=== PATIENT | male | born 1930 | race Caucasian/White ===

== ENCOUNTER → 2016-10-19 | Outpatient (CLI) | payer MEDICARE ==
[~2016-10-19] MED LIST: AMIO200T2 PO; ASPI-667 PO; ATOR40TA PO; BISA10SU6 RC; BUDE0.5A3 IH; CARV3.122 PO; CEPH-350 PO; CLOP75TA PO; CLOP75TA52 PO; DULO20CA PO; FAMO20TA5 PO; GABA100C7 PO; GABA400C PO; GUAI5LIQ PO; HYDR-3097 PO; HYDR-3101 PO; HYDR115S2 PO; Ipratropium/Albuterol Sulfate IH; LACT10SO PO; LEVA0.6320 IH; LEVA1.25 IH; LEVO100T5 PO; LEVO500T51 PO; LEVO50TA6 PO; LORA0.5T PO; LOSA25TA5 PO; MAGN400T27 PO; MERO500P IV; Magnesium Oxide PO; NA P133E2 RC; PANT40TA3 PO; PRED1TAB PO; PRED20TA PO; SACU1TAB PO; TEMA30CA PO; TORS20TA2 PO; VANC750P5 IV; ZOLP10TA5 PO; [UNRECOGNIZED DRUG - CODE] PO; [UNRECOGNIZED DRUG - CODE] PO
--- NOTE | 2016-10-19 18:01 | DIREP ---
PROCEDURE:CHEST 2 VIEWS COMPARISON:[facility], CT, CT CHEST W/O, 08/30/2016, 10:23 AM. [facility], CT, CT CHEST W/CONTRAST, 09/06/2016, 08:49 AM. [facility], CR, XRAY CHEST 2 VWS, 09/09/2016, 09:19 AM. [facility], CR, XRAY CHEST 2 VWS, 09/14/2016, 08:06 AM. [facility], CR, XRAY CHEST 2 VWS, 09/29/2016, 02:39 PM. INDICATIONS:L/U RIGHT LUNG PNEUMONIA FINDINGS: LUNGS/PLEURA:Interstitial infiltrate with multiple small cavities in the posterior segment of the right upper lobe and in the perihilar region of right middle lobe. VASCULATURE:Normal. Unremarkable pulmonary vasculature. CARDIAC:Normal heart size. Implanted dual-lead cardiac drooling over left upper chest. MEDIASTINUM:Normal. No visible mass or adenopathy. BONES:Normal. No fracture or visible bony lesion. OTHER:Negative. CONCLUSION:Compared to prior exam of 09/29/2016, the patient's right upper lobe interstitial infiltrate is slightly less dense. Otherwise no change in appearance of the chest. Dictated by: Rigo Diaz M.D. on 10/19/2016 at 05:55 PM
== END | disposition home or self-care (01) ==
LOC: RAD 15:16
PROVIDERS: ATTEND Specialist
DX: J18.9 Pneumonia, unspecified organism (principal)
CPT/HCPCS: 71020

== ENCOUNTER 2017-04-12 15:09 | Inpatient (IN) | payer MEDICARE ==
[~2017-04-12] VITALS: Ht 188 cm; Wt 105.7 kg
[~2017-04-12 15:09] MED LIST changes: -ASPI-667 PO; +ASPI81TA2 PO; -CEPH-350 PO; +CLOP75TA22 PO; -CLOP75TA52 PO; -DULO20CA PO; -GABA400C PO; +HYDR-3008 PO; -HYDR-3097 PO; +LEVO500T34 PO; -LEVO500T51 PO; +SULF1TAB3 PO; -[UNRECOGNIZED DRUG - CODE] PO
--- NOTE | 2017-04-12 15:20 | NUR ---
Direst Admit Patient admitted to [facility] via direct Admit from, Dr Crawford. Vitals taken at this time and charted. Patient denies pain/discomfort at this time. Will continue to monitor. Call light within reach.
[2017-04-12 15:42] VITALS: BP 158/86
[2017-04-12 15:58] LABS: BASOPHIL % 0.4 % (0.0-0.2); EOSINOPHIL # 0.1 10^3/uL (0.0-0.2); EOSINOPHIL % 1.9 % (0.0-5.0); HEMOGLOBIN 12.6 g/dL (13.9-16.3); LYMPHOCYTES # 0.5 10^3/uL (1.0-4.8); LYMPHOCYTES % 7.2 % (24.0-44.0); MEAN CELL HGB 33.5 pg (26-34); MEAN CELL HGB CONCENTRATION 32.3 g/dL (33-37); MEAN CORP VOLUME 103.7 fL (78-100); MEAN PLATELET VOLUME 8.9 fL (7.8-11.0); MONOCYTES # 0.5 10^3/uL (0.3-0.8); MONOCYTES % 7.6 % (5.0-12.0); NEUTROPHIL # 5.5 10^3/uL (1.8-7.7); NEUTROPHILS % 82.5 % (41.0-85.0); RED CELL DISTRIBUTION WIDTH 13.4 % (11.5-14.5); WHITE BLOOD CELL 6.7 10^3/uL (4.5-11.0)
[2017-04-12] MEDS ORDERED: D5W-1/2 NS/KCL 20MEQ 1,000 ML IV ONE (16:00)
--- NOTE | 2017-04-12 16:19 | DIREP ---
PROCEDURE:CHEST 2 VIEWS COMPARISON:[facility], CR, XRAY CHEST 2 VWS, 02/24/2017, 03:39 PM. INDICATIONS:PNEUMONIA FINDINGS: LUNGS/PLEURA:No significant pulmonary parenchymal abnormalities. No effusions. Regions of mild scar. No acute process is identified VASCULATURE:Normal. Unremarkable pulmonary vasculature. CARDIAC:Normal. No cardiac silhouette abnormality or cardiomegaly. Pacemaker MEDIASTINUM:Normal. No visible mass or adenopathy. BONES:Normal. No fracture or visible bony lesion. OTHER:Negative. CONCLUSION:No acute disease. No significant change has occurred. Dictated by: Alexandre Fuentes MD on 04/12/2017 at 04:17 PM
[2017-04-12 16:26] LABS: ABG PCO2 40.7 mmHg (35.0-45.0); ABG PH 7.399 (7.350-7.450); BE(B) -0.2 mmol/L (-2.0-2.0); HCO3act 24.6 mmol/L (22.0-26.0); pO2 95.1 mmHg (75.0-100.0)
[2017-04-12] MEDS: XOPENEX IH SCH ×2 (16:39→20:53)
--- NOTE | 2017-04-12 17:00 | NUR ---
IV inserted using aseptic technique to left uppper arm . Attempt times two. Patient tolerated well.
[2017-04-12 17:05] LABS: CALCIUM 8.7 mg/dL (8.4-10.5); CARBON DIOXIDE 29.7 mmol/L (20.0-32)
[2017-04-12] MEDS: ZOSYN 3.375 GRAM VIAL 3.375 GM in NS 100ML 100 ML IV SCH ×2 (18:07→23:38)
--- NOTE | 2017-04-12 18:40 | NUR ---
Patient sitting up in bed with eyes open and tv on. Denies pain/discomfort at this time. Will continue to monitor. Call light within reach.
--- NOTE | 2017-04-12 18:48 | NUR ---
Report Report given to Jackson Burch LVN
[2017-04-12 19:42] VITALS: BP 155/83
[2017-04-12] MEDS ORDERED: ZITHROMAX IV ONE (21:13)
[2017-04-12] MEDS ORDERED: NS 250ML 250 ML IV ONE (21:13)
[2017-04-12] MEDS: ZITHROMAX 500 MG in NS 250ML 250 ML IV SCH (21:17)
[2017-04-12] MEDS: SOLU-MEDROL IV SCH (21:18)
[2017-04-12] MEDS: ENTRESTO 24 MG-26 MG TABLET PO SCH (21:18)
[2017-04-12] MEDS: NEURONTIN PO SCH (21:18)
[2017-04-12] MEDS ORDERED: BENADRYL PO ONE (22:30)
--- NOTE | 2017-04-12 22:43 | NUR ---
PT GIVEN BENADRYL FOR ITCHING
[2017-04-12] MEDS: NORCO 10-325 TABLET PO PRN (23:37)
[2017-04-12 23:41] VITALS: BP 144/86
--- NOTE | 2017-04-12 23:50 | NUR ---
DR. RESENDIZ NOTIFIED OD D-DIMER 1,37. NO ORDERS RECEIVED.
[2017-04-13] MEDS: NORCO 10-325 TABLET PO PRN (02:14)
[2017-04-13] MEDS: SYNTHROID PO SCH (05:49)
[2017-04-13] MEDS: ZOSYN 3.375 GRAM VIAL 3.375 GM in NS 100ML 100 ML IV SCH ×3 (05:50→17:53)
[2017-04-13 06:00] VITALS: BP 113/66
[2017-04-13] MEDS ORDERED: D5W-1/2 NS/KCL 20MEQ 1,000 ML ONE ×2 (07:27→17:53)
[2017-04-13 08:28] VITALS: BP 108/63
[2017-04-13] MEDS ORDERED: D5W-1/2NS 1000ML 1,000 ML IV SCH (08:30)
--- NOTE | 2017-04-13 08:30 | NUR ---
DISCHARGE PLAN PATIENT AND HIS ARE CURRENT RESIDENTS @ [facility]. PATIENT IS RILEY INDEPENDENT ON ADLS AND USED A WALKER OR CANE FOR AMBULATION, BUT HE TYLICALLY USES HIS CANE MORE. CM NOTIFIED JOEL CONTE WITH PN WHO STATED PATIENT AND HIS ARE RESIDENTS @ [facility] AND PATIENT HAS BEEN DOING WELL. SHE STATED HE IS VERY AMBULATORY WITH HIS CANE AND HAS CONTINUES O2 IN PLACE @ FACILITY. JOEL STATED PATIENT IS "OKAY" TO DISCHARGE BACK TO [facility] UPON DISCHARGE, BUT WILL NEED A PREAUTH PER PATIENTS [employer] INSURANCE TO TAKE HIM BACK UNDER SNF SERVICES PER HIS MEDICARE RIGHTS. Ryland SRIVASTAVA RN CHARGE NURSE NOTIFIED. CM WILL CONTINUE TO FOLLOW PATIENTS PLAN OF CARE.
[2017-04-13] MEDS: ENTRESTO 24 MG-26 MG TABLET PO SCH ×2 (08:31→21:39)
[2017-04-13] MEDS: PROTONIX PO SCH (08:31)
[2017-04-13] MEDS: PLAVIX PO SCH (08:31)
[2017-04-13] MEDS: CORDARONE PO SCH (08:32)
[2017-04-13] MEDS: CYMBALTA PO SCH (08:32)
[2017-04-13] MEDS: MAG-OX PO SCH (08:32)
[2017-04-13] MEDS: CEPHULAC PO SCH (08:32)
[2017-04-13] MEDS: SOLU-MEDROL IV SCH ×2 (08:33→21:39)
[2017-04-13] MEDS: XOPENEX IH SCH ×4 (08:47→20:40)
[2017-04-13 12:16] VITALS: BP 117/56
[2017-04-13 16:44] VITALS: BP 124/62
[2017-04-13] MEDS: D5W-1/2 NS/KCL 20MEQ 1,000 ML IV SCH (17:58)
[2017-04-13 19:37] VITALS: BP 118/68
[2017-04-13] MEDS: NEURONTIN PO SCH (21:39)
[2017-04-13] MEDS: ZITHROMAX 500 MG in NS 250ML 250 ML IV SCH (21:39)
[2017-04-14] VITALS: BP 142/80
[2017-04-14] MEDS: ZOSYN 3.375 GRAM VIAL 3.375 GM in NS 100ML 100 ML IV SCH ×4 (00:37→18:21)
[2017-04-14] MEDS: NORCO 10-325 TABLET PO PRN ×2 (01:35→23:04)
[2017-04-14 04:46] VITALS: BP 143/74
[2017-04-14] MEDS: D5W-1/2 NS/KCL 20MEQ 1,000 ML IV SCH ×2 (06:15→17:54)
[2017-04-14] MEDS: SYNTHROID PO SCH (06:26)
[2017-04-14 06:46] LABS: HEMATOCRIT 38.5 % (37.0-53.0); HEMOGLOBIN 12.5 g/dL (13.9-16.3); LYMPHOCYTES # 0.3 10^3/uL (1.0-4.8); LYMPHOCYTES % 1.3 % (24.0-44.0); MEAN CELL HGB 33.3 pg (26-34); MEAN CELL HGB CONCENTRATION 32.5 g/dL (33-37); MEAN CORP VOLUME 102.7 fL (78-100); MONOCYTES # 0.7 10^3/uL (0.3-0.8); MONOCYTES % 2.8 % (5.0-12.0); NEUTROPHIL # 23.6 10^3/uL (1.8-7.7); NEUTROPHILS % 95.6 % (41.0-85.0); PLATELET COUNT 186 10^3/uL (150-400); RED CELL DISTRIBUTION WIDTH 13.3 % (11.5-14.5); WHITE BLOOD CELL 24.7 10^3/uL (4.5-11.0)
[2017-04-14 07:10] LABS: CALCIUM 8.2 mg/dL (8.4-10.5); CARBON DIOXIDE 26.3 mmol/L (20.0-32)
[2017-04-14 07:11] LABS: LYMPHOCYTE 2 % (25-36); MONOCYTE 4 % (3-9); SEGMENTED NEUTROPHILS 94 % (31-76)
--- NOTE | 2017-04-14 08:37 | DIREP ---
PROCEDURE:CHEST 2 VIEWS COMPARISON:[facility], CR, XRAY CHEST 2 VWS, 04/12/2017, 03:10 PM. INDICATIONS:pneumonia FINDINGS: LUNGS/PLEURA:Right lobectomy and volume loss of the right lung. Right parahilar and left basilar scarring. No focal infiltrate or End pleural effusion. CARDIAC:Normal cardiac silhouette, ICD and normal pulmonary vascularity. MEDIASTINUM:Normal. BONES:Mild thoracic spondylosis and wedging OTHER:No additional findings. CONCLUSION:No acute cardiopulmonary process or significant change. Dictated by: Radha Whitehead MD on 04/14/2017 at 08:34 AM
[2017-04-14] MEDS: ENTRESTO 24 MG-26 MG TABLET PO SCH ×2 (09:00→21:02)
[2017-04-14] MEDS: CEPHULAC PO SCH (09:00)
[2017-04-14] MEDS: XOPENEX IH SCH ×4 (09:11→22:35)
[2017-04-14] MEDS: MAG-OX PO SCH (10:05)
[2017-04-14] MEDS: PLAVIX PO SCH (10:05)
[2017-04-14] MEDS: SOLU-MEDROL IV SCH ×2 (10:05→21:02)
[2017-04-14] MEDS: CORDARONE PO SCH (10:05)
[2017-04-14] MEDS: PROTONIX PO SCH (10:06)
[2017-04-14] MEDS: CYMBALTA PO SCH (10:10)
[2017-04-14 10:11] VITALS: BP 140/78
[2017-04-14 13:16] VITALS: BP 138/74
[2017-04-14 17:34] VITALS: BP 111/70
--- NOTE | 2017-04-14 19:05 | NUR ---
REPORT GIVEN TO ONCOMING SHIFT
[2017-04-14 20:52] VITALS: BP 138/82
[2017-04-14] MEDS: ZITHROMAX 500 MG in NS 250ML 250 ML IV SCH (21:02)
[2017-04-14] MEDS: NEURONTIN PO SCH (21:02)
[2017-04-15 00:23] VITALS: BP 128/69
[2017-04-15] MEDS: ZOSYN 3.375 GRAM VIAL 3.375 GM in NS 100ML 100 ML IV SCH ×4 (02:44→18:14)
[2017-04-15 04:56] VITALS: BP 132/66
[2017-04-15] MEDS: SYNTHROID PO SCH (06:00)
[2017-04-15] MEDS: D5W-1/2 NS/KCL 20MEQ 1,000 ML IV SCH ×4 (06:01→22:16)
--- NOTE | 2017-04-15 07:01 | NUR ---
REPORT RECEIVED FROM ROSARIO MARTIN.
[2017-04-15 08:20] VITALS: BP 118/65
--- NOTE | 2017-04-15 08:20 | NUR ---
ASSESSMENT COMPLETED. PATIENT LYING IN BED WITH EYES CLOSED. RESPONDS TO VERBAL STIMULI. RESPIRATIONS UNLABORED. HEART RATE REGULAR. DENIES PAIN OR DISCOMFORT. SKIN WARM AND DRY. 02 ON 2L/NC. IV PATENT TO RIGHT AC WITH D5 1/2 INFUSING AT 100CC/HR VIA PUMP. NEGATIVE S/S INFILTRATION NOTED. SR UP X2. CALL LIGHT WITHIN REACH.
[2017-04-15] MEDS: XOPENEX IH SCH ×4 (09:35→20:12)
--- NOTE | 2017-04-15 10:00 | NUR ---
INSTRUCTED RE: MED REGIME. VERBALIZES UNDERSTANDING.
[2017-04-15] MEDS: CEPHULAC PO SCH (10:40)
[2017-04-15] MEDS: PLAVIX PO SCH (10:41)
[2017-04-15] MEDS: MAG-OX PO SCH (10:41)
[2017-04-15] MEDS: PROTONIX PO SCH (10:41)
[2017-04-15] MEDS: ENTRESTO 24 MG-26 MG TABLET PO SCH ×2 (10:41→21:13)
[2017-04-15] MEDS: CORDARONE PO SCH (10:41)
[2017-04-15] MEDS: CYMBALTA PO SCH (10:41)
[2017-04-15 11:00] LABS: HEMATOCRIT 41.7 % (37.0-53.0); HEMOGLOBIN 13.5 g/dL (13.9-16.3); LYMPHOCYTES # 0.3 10^3/uL (1.0-4.8); LYMPHOCYTES % 1.5 % (24.0-44.0); MEAN CELL HGB 33.5 pg (26-34); MEAN CELL HGB CONCENTRATION 32.4 g/dL (33-37); MEAN CORP VOLUME 103.5 fL (78-100); MEAN PLATELET VOLUME 9.1 fL (7.8-11.0); MONOCYTES # 0.9 10^3/uL (0.3-0.8); MONOCYTES % 4.4 % (5.0-12.0); NEUTROPHIL # 19.6 10^3/uL (1.8-7.7); NEUTROPHILS % 93.8 % (41.0-85.0); PLATELET COUNT 190 10^3/uL (150-400); RED CELL DISTRIBUTION WIDTH 13.5 % (11.5-14.5)
--- NOTE | 2017-04-15 13:00 | NUR ---
DAUGHTER AT BEDSIDE. VISITING WITH PATIENT.
[2017-04-15 13:11] LABS: BAND NEUTROPHILS 2 % (2-6); LYMPHOCYTE 2 % (25-36); MONOCYTE 1 % (3-9); SEGMENTED NEUTROPHILS 95 % (31-76)
--- NOTE | 2017-04-15 14:00 | NUR ---
[facility]: SS FAXED OVER PT'S PHYSICAL THERAPY NOTES TO [facility] SO THEY COULD RESUBMIT THEM TO [place] FOR PRE AUTHORIZATION.
[2017-04-15 16:00] VITALS: BP 146/81
--- NOTE | 2017-04-15 16:08 | NUR ---
SITTING UP IN BED ON COMPUTER. NO COMPLAINTS VOICED.
[2017-04-15 20:17] VITALS: BP 124/70
[2017-04-15] MEDS: NEURONTIN PO SCH (21:13)
[2017-04-15] MEDS: NORCO 10-325 TABLET PO PRN (22:14)
[2017-04-16 00:01] VITALS: BP 127/76
[2017-04-16] MEDS: ZOSYN 3.375 GRAM VIAL 3.375 GM in NS 100ML 100 ML IV SCH ×3 (01:33→11:43)
[2017-04-16] MEDS: SYNTHROID PO SCH (05:47)
[2017-04-16] MEDS: D5W-1/2 NS/KCL 20MEQ 1,000 ML IV SCH ×2 (06:00→09:25)
[2017-04-16 06:16] VITALS: BP 120/68
--- NOTE | 2017-04-16 06:40 | NUR ---
RECEIVED REPORT/ASSUMED CARE OF PATIENT AT THIS TIME
--- NOTE | 2017-04-16 07:45 | NUR ---
ALERT/ORIENTEDx3 OU 2/BRISK LUNG SOUNDS CTA ALL AN WITH WHEEZING THROUGHOUT WITH UNLABORED/EVEN/DEEP RESPIRATIONS ON ROOM AIR HEART TONES S1/S2 FAINT/REGULAR WITH CAP REFILL<3 PPPx4 STRONG/= UPPER WEAK/= LOWER RE: +2 EDEMA PITTING ABD ROTUND SOFT NONTENDER WITH ACTIVE BOWEL SOUNDSx4 CONTINENT OF BOWEL/BLADDER (NOT OBSERVED) MAEx4 WITH MODERATE WEAKNESS TO BLE IV ACCESS TO RIGHT AC (22g) WITH IVF (D5 1/5 NS) INFUSING AT 100ml/hr DENIES PAIN OR DISCOMFORT AT THIS TIME.
[2017-04-16] MEDS ORDERED: PREDNISONE PO SCH (09:00)
--- NOTE | 2017-04-16 09:00 | NUR ---
TOLERATED PO MEDICATION WELL, DENIES PAIN OR DISCOMFORT
[2017-04-16] MEDS: XOPENEX IH SCH (09:04)
[2017-04-16 09:23] VITALS: BP_SYST 128
[2017-04-16] MEDS: CYMBALTA PO SCH (09:24)
[2017-04-16] MEDS: CEPHULAC PO SCH (09:24)
[2017-04-16] MEDS: ENTRESTO 24 MG-26 MG TABLET PO SCH (09:24)
[2017-04-16] MEDS: NEURONTIN PO SCH (09:25)
[2017-04-16] MEDS: PROTONIX PO SCH (09:25)
[2017-04-16] MEDS: PLAVIX PO SCH (09:25)
[2017-04-16] MEDS: MAG-OX PO SCH (09:25)
[2017-04-16] MEDS: CORDARONE PO SCH (09:25)
[2017-04-16] MEDS ORDERED: AMIO200T2 PO (11:21)
[2017-04-16] MEDS ORDERED: Magnesium Oxide PO (11:21)
[2017-04-16] MEDS ORDERED: CEPH-350 PO (11:21)
[2017-04-16] MEDS ORDERED: DULO20CA PO (11:21)
[2017-04-16] MEDS ORDERED: GABA400C PO (11:21)
[2017-04-16 11:45] VITALS: BP 95/58
--- NOTE | 2017-04-16 11:46 | NUR ---
RESTING WITH OU CLOSED DENIES PAIN OR DISCOMFORT
--- NOTE | 2017-04-16 12:21 | NUR ---
NEW ORDER RECEIVED TO DISCHARGE BACK TO [facility]
--- NOTE | 2017-04-16 13:31 | NUR ---
DISCHARGE patient is discharged and stated he didnt want to return to the detention and that he was going to sign himself out and go home. He stated his daughter lives with him and he has oxygen at the house. Patient wants interim home health. Informed bilingual patient support caseworker of patients wishes and she stated she would get him home health set up for tomorrow.
--- NOTE | 2017-04-16 13:32 | NUR ---
IV ACCESS REMOVED AT THIS TIME WITH CATH TIP INTACT, NO S/S OF INFILTRATION OR INFECTION AT SITE
[2017-04-16 13:39] VITALS: BP 95/58
--- NOTE | 2017-04-16 13:50 | NUR ---
DISCHARGE INSTRUCTIONS GIVEN TO PATIENT, WILL BE TRANSPORTED BACK TO [facility] VIA PRIVATE VEHICLE WITH BELONGINGS, IN STABLE CONDITION AT THIS TIME, REPORT CALLED TO OFE RIDDLE LVN
--- NOTE | 2017-04-17 10:10 | NUR ---
[facility]: SS FAXED OVER PT'S DISCHARGE INSTRUCTIONS AND PREVIOUS H&P TO [facility] SO THEY CAN SET PT UP MICHAEL. SS LEFT A MESSAGE FOR JORGE VALENZUELA TO CALL THIS WORKER BACK TO DISCUSS PT. NO FURTHER NEEDS NOTED AT THIS TIME.
--- NOTE | 2017-04-21 15:03 | PNH ---
PROGRESS NOTE SUBJECTIVE: The patient is feeling much better. OBJECTIVE: VITAL SIGNS: Stable. LUNGS: Clear. HEART: Sounds normal. PLAN: For neuropathy symptoms, we will place him on gabapentin twice a day. No VT, ischemic cardiomyopathy, less than 30% ejection fraction, lateral ischemia, inferior infarct, old LAD stent, no provoked ischemia on the anterior wall based on the last perfusion scan. Some lateral ischemia was documented. He had a cath over a year ago and one had to do it through the radial approach and he subsequently developed ischemia of the right hand. So, since he is afebrile, we will continue to optimize [place] [address]. Repeat white count. Discontinue Zithromax. Discontinue Solu-Medrol. Put him on prednisone 20 mg once a day to improve air entry both lung bases. If he is doing much better, we will transfer to the residential on 04/16/2017. Christopher Crawford M.D. Date Dictated: 04/20/2017 Date Transcribed: 04/20/2017 JUNIOR/JAYCEE Uploaded from [employer] to [employer] by Davy LIM
--- NOTE | 2017-04-21 15:05 | PNH ---
PROGRESS NOTE SUBJECTIVE: The patient is feeling much better. His cough is better. He has had some chills. On his lab and x-ray, there is no obvious indication for any leukocytosis or infiltrate, but clinically he has definite findings of ____ in the right lung base and cough with thick sputum. Air entry seems to be improved in the right lung. Heart sounds are normal. He is on IV steroids and empirically on Zosyn, Zithromax. Blood cultures have been drawn. Sputum studies have been sent. IMPRESSION: Possible right lung pneumonia. PLAN: Repeat chest x-ray 04/14/2017. Optimize medical therapy at this time. Christopher Crawford M.D. Date Dictated: 04/20/2017 Date Transcribed: 04/20/2017 JUNIOR/JAYCEE Uploaded from [email or web address] to [email or web address] by Davy LIM
--- NOTE | 2017-04-21 15:10 | PNH ---
PROGRESS NOTE SUBJECTIVE: Patient is doing much better. He has localized finding in the right lung. He has had infection twice with MRSA pneumonia in the same segment. His x-ray is not picking up an infiltrate, but his white count has gone up to 24,000, whether it is related to steroids is unclear; but, he is clinically feeling much better. His sputum production has increased and he has whitish sputum, but cough is much better. Breathing much better. Having neuropathy symptoms in both lower legs. PHYSICAL EXAMINATION: VITAL SIGNS: Stable. LUNGS: Inferior entry, right lung base. HEART: Sounds are normal. PLAN: We will repeat chest x-ray and continuously optimize medical therapy. Christopher Crawford M.D. Date Dictated: 04/20/2017 Date Transcribed: 04/20/2017 JUNIOR/GLORY Uploaded from [employer] to [employer] by Davy LIM
--- NOTE | 2017-04-26 10:04 | PCM.HP ---
CHIEF COMPLAINT: Chills, rigors, fever, cough, phlegm, findings in the right lung. HISTORY OF PRESENT ILLNESS: The patient is an 87-year-old white male who has had 2 episodes of severe pneumonia in the right lung with massive consolidation with a long, protracted hospital course in the past, and he has been in the detention and came with similar symptoms of generalized constitutional symptoms of cough, fever, chills and he was having rigors and had findings of coarse rales in the right lung base, was admitted with a diagnosis of possible recurrent pneumonia for further evaluation and management. ALLERGIES: None known. MEDICATIONS: He has been on amiodarone 200 mg once a day, hydrocodone 5/325 one tablet q. 4 hour p.r.n. pain, Cymbalta 20 mg once a day, Ambien 10 mg once a day, aspirin 81 mg once a day, Plavix 75 mg once a day, Xopenex 0.63 mg nebulizer treatment 4 times a day, Ativan 0.5 mg twice a day, lactulose 10 grams once a day, Surfak 240 mg once a day, Protonix 14 mg once a day, prednisone 20 mg once a day, Pulmicort nebulizer treatment 0.5 mg twice a day, Coreg 3.125 mg twice a day, gabapentin 400 mg at bedtime, Entresto 1 tablet twice a day, Levothroid 150 mcg once a day, nitroglycerine p.r.n., magnesium oxide 400 mg once a day. 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 Please refer to my office notes for the details of the same. He has had right endarterectomy also. SOCIAL HISTORY: Prior history of smoking, former smoker. Quit smoking about 20 years ago and has about 35 pack year history of smoking. No history of any ethanol abuse. FAMILY HISTORY: Positive for heart problems. PHYSICAL EXAMINATION: He is alert, awake, oriented. His pulse was 75. His weight was 220 pounds, 6 feet 3 inches. Blood pressure was 105/60, respirations were 18-20 and saturation 91%. HEENT was unremarkable. Coarse rales at the right lung base and decreased air entry right lung base. S1, S2 normal. Abdomen was rounded, soft, nontender. No organomegaly. Distal pulses poorly felt and unsteady on his feet. He uses a walker. Distal pulse is 40. No focal neural deficit is documented. DIAGNOSTIC STUDIES: EKG shows sinus rhythm, first degree AV block, interventricular conduction delay, anteroseptal OH changes, old and nonspecific ST and T wave changes. IMPRESSION: Recurring fever, chills with prior history of MRSA pneumonia in the right lung x2, recurrent right lung clear clinical findings, rule out recurrent pneumonia, COPD, ischemic cardiomyopathy, chronic systolic heart failure, ventricular tachycardia. PLAN: At this time, admit the patient. We will start him on Zosyn, Zithromax, nebulizer treatment, and IV steroids. His initial chest x-ray was not showing infiltration, but we will repeat the x-ray and continue to optimize medical therapy. Nikki Carranza TD: 04/20/2017 15:04 RAPHAEL
== END 2017-04-16 15:21 | DRG 871 ==
LOC: MS 15:09
PROVIDERS: ADMIT Specialist; ATTEND Specialist
DX: A41.9 Sepsis, unspecified organism (principal); J18.9 Pneumonia, unspecified organism; I50.22 Chronic systolic (congestive) heart failure; I47.2 Ventricular tachycardia; I49.3 Ventricular premature depolarization; I48.91 Unspecified atrial fibrillation; I25.5 Ischemic cardiomyopathy; J44.9 Chronic obstructive pulmonary disease, unspecified; I25.10 Atherosclerotic heart disease of native coronary artery without angina pectoris; I11.0 Hypertensive heart disease with heart failure; Z79.82 Long term (current) use of aspirin; Z79.899 Other long term (current) drug therapy; Z87.891 Personal history of nicotine dependence; Z95.5 Presence of coronary angioplasty implant and graft; Z86.73 Personal history of transient ischemic attack (TIA), and cerebral infarction without residual deficits; I25.2 Old myocardial infarction; Z82.49 Family history of ischemic heart disease and other diseases of the circulatory system; Z85.118 Personal history of other malignant neoplasm of bronchus and lung; Z86.14 Personal history of Methicillin resistant Staphylococcus aureus infection
CPT/HCPCS: 36415; 36600; 71020; 80048; 80053; 82803; 83880; 84484; 85007; 85025; 85379; 85610; 85730; 87040; 93005; 94640; 97161; J0456; J2543; J2930; J3490; J7050; J7070; J7512; Q0163; C9399; G8978-CI; G8979-CI; G8980-CI

== ENCOUNTER → 2017-07-20 | Outpatient (CLI) | payer MEDICARE ==
[~2017-07-20] MED LIST changes: +CEPH-350 PO; +DULO20CA PO; +GABA400C PO
--- NOTE | 2017-07-21 07:55 | DIREP ---
PROCEDURE: CT SPINE LUMBAR W/O TECHNIQUE:Axial cuts were obtained through the lumbar spine. The images were viewed at bone settings. COMPARISON:[facility], CT, CT ABD/PELVIS W/O, 12/06/2016, 04:45 PM. INDICATIONS:LUMBAR RADICULOPATHY FINDINGS: ALIGNMENT:Normal. VERTEBRAE:No fractures. No lytic or blastic lesions. PARASPINAL AREA:Aortoiliac stent graft noted. Multiple colonic diverticula without diverticulitis. Small fat containing left inguinal hernia. OTHER:Mild narrowing of each SI joint. Small amount of osteophyte formation at the anterior margin of the right SI joint. The offender job retention specialist tomogram demonstrates in intracardiac pacemaker wire leads. LUMBAR DISC LEVELS T12-L1:Normal. L1-L2:Normal. L2-L3:Moderate bilateral facet arthropathy. Small bilateral foraminal disc protrusions. Mild bilateral foraminal stenosis. L3-L4:Mild posterior disc bulge, moderate bilateral facet arthropathy, and mild ligamentous hypertrophy. Mild central canal spinal stenosis and mild bilateral foraminal stenosis. L4-L5:Mild posterior disc bulge, marked bilateral facet arthropathy, and mild ligamentous hypertrophy. Moderate central canal spinal stenosis and marked bilateral foraminal stenosis. L5-S1:Mild posterior disc bulge and marked bilateral facet arthropathy. Marked bilateral foraminal stenosis. CONCLUSION: 1. Multilevel degenerative disc and joint changes of the lumbar spine without evidence of acute bony trauma. 2. At L3-4 there is mild acquired central canal spinal stenosis at L4-5 there is moderate acquired central stenosis. 3. At L2-3 and L3-4, there is mild bilateral foraminal stenosis. At L4-5 and L5-S1 there is marked bilateral foraminal stenosis. 4. Please see the above dictation for details of other findings. Dictated by: Rigo Diaz M.D. on 07/21/2017 at 07:40 AM
== END | disposition home or self-care (01) ==
LOC: RAD 14:47
PROVIDERS: ATTEND Specialist
DX: M51.16 Intervertebral disc disorders with radiculopathy, lumbar region (principal); M48.07 Spinal stenosis, lumbosacral region
CPT/HCPCS: 72131

== ENCOUNTER → 2017-08-08 | Outpatient (CLI) | payer MEDICARE ==
[~2017-08-08] MED LIST changes: +ASPI-667 PO; -ASPI81TA2 PO; -CLOP75TA22 PO; +CLOP75TA52 PO; -HYDR-3008 PO; +HYDR-3097 PO; -LEVO500T34 PO; +LEVO500T51 PO; -SULF1TAB3 PO; +[UNRECOGNIZED DRUG - CODE] PO
--- NOTE | 2017-08-09 08:44 | DIREP ---
PROCEDURE:US DUPLEX LOWER EXTREMITY ARTERY UNIL/LIMITED-LT COMPARISON:[facility], US, ARTERIAL BILATERAL LOWER EXTREMITY, 03/08/2013, 08:53 AM. INDICATIONS:DOPPLER LT INGUINAL/FEMORAL ART. FOR LT HIP PAIN TECHNIQUE:A comprehensive color duplex Doppler ultrasound examination of the left lower extremity was performed. Color image and bidirectional spectral Doppler wave form analysis, and peak systolic flow measurements of the common femoral, profunda femoral, superficial femoral, and popliteal arteries were performed. Ankle/brachial indices were measured at the distal posterior tibial artery and anterior tibial/dorsalis pedis. FINDINGS: LEFT LOWER EXTREMITY: PT TRAMAINE: 1.0. AT/DP TRAMAINE: 1.0. EXTERNAL ILIAC:123.0 cm/sTriphasic COMMON FEMORAL:122.2 cm/sTriphasic PROFUNDA FEMORIS:95.2 cm/sBiphasic SUPERFICIAL FEMORAL (prox):111.8 cm/sBiphasic SUPERFICIAL FEMORAL (mid):118.6 cm/sTriphasic SUPERFICIAL FEMORAL (dist):134.8cm/sBiphasic POPLITEAL (prox):51.2 cm/sTriphasic POPLITEAL (dist):46.7 cm/sTriphasic POSTERIOR TIBIAL (prox):49.9 cm/sBiphasic POSTERIOR TIBIAL (mid):165.5 cm/sBiphasic POSTERIOR TIBIAL (dist):39.4 cm/sBiphasic PERONEAL (prox):63.0 cm/sTriphasic ANTERIOR TIBAL (prox):185.2 cm/sBiphasic ANTERIOR TIBAL (mid):57.3 cm/sTriphasic ANTERIOR TIBAL (dist):47.2 cm/sBiphasic DORSALIS PEDIS:40.1 cm/sBiphasic AORTA: 38.4 cm/s COMMON ILIAC:111.1 cm/s RIGHT LOWER EXTREMITY: PT TRAMAINE: 1.1. AT/DP TRAMAINE: 1.0. RIGHT DORSALIS PEDIS: 21.8 cm/sTriphasic RIGHT POSTERIOR TIBIAL: 61.6 cm/sTriphasic CONCLUSION:No evidence of significant obstructive disease of the arteries of the left lower extremity. ABIs greater than 1.4 indicate noncompressible vessels, likely to have significant peripheral vascular disease (PVD). ABIs of 0.91 to 1.3 indicate no significant obstructive disease. ABIs of 0.41 to 0.90 indicate grade I claudication. ABIs less than 0.4 indicate limb-threatening ischemia of grade I or grade II. % stenosisPSV (cm/s)Velocity ratio0-19<150<[id number]>75>300>4 Dictated by: AFSANEH Physician on 08/09/2017 at 08:19 AM ac
== END | disposition home or self-care (01) ==
LOC: RAD 13:48
PROVIDERS: ATTEND Internal Medicine
DX: M25.552 Pain in left hip (principal)
CPT/HCPCS: 93922; 93926

== ENCOUNTER → 2017-09-09 | Outpatient (CLI) | payer MEDICARE ==
--- NOTE | 2017-09-09 17:10 | DIREP ---
PROCEDURE:US KIDNEYS-BILAT COMPARISON:None. INDICATIONS:FREQUENT URINATION TECHNIQUE:Ultrasound examination was performed of the kidneys and bladder. FINDINGS: RIGHT KIDNEY:10.83 cm x 5.02 cm x 5.82 cm LEFT KIDNEY:10.57 cm x 5.13 cm x 5.25 cm RIGHT KIDNEY: A cyst identified in the upper pole of the right kidney measuring 2 x 2.1 x 3.1 cm in size. The cortical thickness of the right kidney is 1.4 cm. LEFT KIDNEY: A cyst identified in the upper pole of the left kidney measuring 1.5 x 1.4 x 1.7 cm in size. The cortical thickness of the left kidney is 1.6 cm. BLADDER:The prevoid bladder volume is 812 mL. The postvoid bladder volume is 449 mL, there is significant postvoid residua identified. OTHER:Negative. CONCLUSION:Cysts along the upper pole of the kidneys. Significant postvoid residual. Dictated by: Nhan Moreno MD on 09/09/2017 at 05:09 PM on 09/09/2017 at 05:07
== END | disposition home or self-care (01) ==
LOC: RAD 15:02
PROVIDERS: ATTEND Internal Medicine Nephrology
DX: N28.1 Cyst of kidney, acquired (principal); R35.0 Frequency of micturition
CPT/HCPCS: 76770

== ENCOUNTER → 2017-09-15 | Outpatient (CLI) | payer MEDICARE ==
--- NOTE | 2017-09-15 16:56 | DIREP ---
PROCEDURE:CHEST 2 VIEWS COMPARISON:[facility], CR, XRAY CHEST 2 VWS, 04/14/2017, 07:38 AM. INDICATIONS:CHF, VT FINDINGS: LUNGS/PLEURA:Right pulmonary sutures no infiltrate or mass VASCULATURE:Normal. Unremarkable pulmonary vasculature. CARDIAC:Left subclavian ICD MEDIASTINUM:Normal. No visible mass or adenopathy. BONES:Normal. No fracture or visible bony lesion. OTHER:Negative. CONCLUSION: 1. Stable evaluation of the chest with no acute findings Dictated by: Alexandre Mirza Jr. on 09/15/2017 at 04:53 PM
[2017-09-15 17:15] LABS: ABG PCO2 41.5 mmHg (35.0-45.0); ABG PH 7.379 (7.350-7.450); BE(B) -1.2 mmol/L (-2.0-2.0); HCO3act 23.9 mmol/L (22.0-26.0); pO2 54.2 mmHg (75.0-100.0)
== END | disposition home or self-care (01) ==
LOC: RAD 16:21
PROVIDERS: ATTEND Specialist
DX: I50.9 Heart failure, unspecified (principal); R09.02 Hypoxemia
CPT/HCPCS: 71020

== ENCOUNTER → 2017-09-19 | Outpatient (CLI) | payer MEDICARE ==
[2017-09-19 13:32] LABS: BILIRUBIN,URINE NEGATIVE (NEGATIVE); UROBILINOGEN,URINE NORMAL (NEGATIVE)
[2017-09-19 13:34] LABS: APPEARANCE,URINE CLEAR (CLEAR); UA COLOR YELLOW (YELLOW)
[2017-09-19 13:38] LABS: BASOPHIL % 0.6 % (0.0-0.2); EOSINOPHIL # 0.5 10^3/uL (0.0-0.2); EOSINOPHIL % 7.1 % (0.0-5.0); HEMOGLOBIN 11.9 g/dL (13.9-16.3); LYMPHOCYTES # 1.4 10^3/uL (1.0-4.8); LYMPHOCYTES % 19.7 % (24.0-44.0); MEAN CELL HGB 32.3 pg (26-34); MEAN CORP VOLUME 104.3 fL (78-100); MEAN PLATELET VOLUME 9.6 fL (7.8-11.0); MONOCYTES # 1.4 10^3/uL (0.3-0.8); MONOCYTES % 19.9 % (5.0-12.0); NEUTROPHIL # 3.6 10^3/uL (1.8-7.7); NEUTROPHILS % 52.4 % (41.0-85.0); RED CELL DISTRIBUTION WIDTH 13.7 % (11.5-14.5); WHITE BLOOD CELL 6.9 10^3/uL (4.5-11.0)
[2017-09-19 14:45] LABS: CALCIUM 8.7 mg/dL (8.4-10.5); CARBON DIOXIDE 31.2 mmol/L (20.0-32)
== END | disposition home or self-care (01) ==
LOC: NPLAB 13:17
PROVIDERS: ATTEND Internal Medicine Nephrology
DX: I12.9 Hypertensive chronic kidney disease with stage 1 through stage 4 chronic kidney disease, or unspecified chronic kidney disease (principal); N18.4 Chronic kidney disease, stage 4 (severe)
CPT/HCPCS: 36415; 80053; 81002; 83735; 84100; 84439; 84443; 84550; 85025; 86038; 86140; 86160; 87086

== ENCOUNTER 2017-09-23 09:46 | Emergency (ER) | payer MEDICARE ==
[~2017-09-23] VITALS: Ht 188 cm; Wt 109.8 kg
[2017-09-23] MEDS ORDERED: DUONEB 0.5 MG-3 MG/3 ML SOLN IH STA (10:24)
[2017-09-23] MEDS ORDERED: SOLU-MEDROL IM STA (10:24)
[2017-09-23] MEDS ORDERED: DECADRON IH STA (10:24)
--- NOTE | 2017-09-23 10:28 | ER.PDOC ---
General Chief Complaint: General Complaint Stated Complaint: COPD EXACERBATION,POSS PNEUMONIA Time seen by MD: 10:27 Source: patient Exam Limitations: no limitations History of Present Illness Initial Comments Difficulty breathing and cough for past few days Severity: moderate Prior Episodes/Possible Cause: occasional episodes, chronic episodes Modifying Factors: improves with albuterol nebulizer Associated Symptoms: cough Prior symptoms/Treatment: Similar symptoms previous, Recenly Seen, Treated by Doctor Allergies: Coded Allergies: No Known Allergies (Unverified , 03/17/14) Home Meds Active Scripts Cephalexin (KEFLEX) 500 Mg Capsule, 500 MG PO TID for 5 Days Prov:HAYDEN CRAWFORD MD 04/16/17 [Magnesium Oxide] 400 MG TABLET No Conflict Check, 400 MG PO DAILY for 30 Days Prov:HAYDEN CRAWFORD MD 04/16/17 Gabapentin (NEURONTIN) 400 Mg Capsule, 400 MG PO BID for 30 Days, CAPSULE Prov:HAYDEN CRAWFORD MD 04/16/17 Duloxetine Hcl (CYMBALTA) 20 Mg Capsule.dr, 20 MG PO DAILY for 30 Days Prov:HAYDEN CRAWFORD MD 04/16/17 Amiodarone Hcl (CORDARONE) 200 Mg Tablet, 200 MG PO DAILY for 30 Days, TABLET Prov:HAYDEN CRAWFORD MD 04/16/17 Clopidogrel Bisulfate (PLAVIX) 75 Mg Tablet, 75 MG PO DAILY for 30 Days Prov:HAYDEN CRAWFORD MD 12/09/16 Aspirin (ASPIRIN) 81 Mg Tab.chew, 81 MG PO DAILY for 30 Days Prov:HAYDEN CRAWFORD MD 12/09/16 Levalbuterol Hcl (XOPENEX) 0.63 Mg/3 Ml Vial.neb, 0.63 MG IH RTQID for 10 Days Prov:HAYDEN CRAWFORD MD 12/08/16 Na Phos,M-B/Na Phos,Di-Ba (FLEET ENEMA) 133 Ml Enema, 133 ML RC PRN Y for CONSTIPATION for 10 Days Prov:HAYDEN CRAWFORD MD 11/23/16 Guaifenesin/Codeine Phosphate (Guaifenesin-Codeine Syrup) 5 Ml Liquid, 5 ML PO Q4HR Y for COUGH for 14 Days Prov:HAYDEN CRAWFORD MD 2/7/17 Temazepam (TEMAZEPAM) 30 Mg Capsule, 1 CAP PO HS Y for SLEEP, #30 CAP 1 Refill Prov:HAYDEN CRAWFORD MD 09/14/16 Lorazepam (LORAZEPAM) 0.5 Mg Tablet, 1 TAB PO BID Y for ANXIETY, #60 TAB Prov:HAYDEN CRAWFORD MD 09/14/16 Hydrocodone Bit/Acetaminophen (NORCO 5-325) 1 Each Tablet, 1 EACH PO Q4H Y for PAIN, #30 TAB Prov:HAYDEN CRAWFORD MD 09/14/16 Pantoprazole Sodium (PROTONIX) 40 Mg Tablet.dr, 40 MG PO DAILY for 30 Days Prov:HAYDEN CRAWFORD MD 09/14/16 Budesonide (PULMICORT) 0.5 Mg/2 Ml Ampul.neb, 0.5 MG IH BID for 30 Days Prov:HAYDEN CRAWFORD MD 09/14/16 Reported Medications Lactulose (LACTULOSE) 10 Gm/15 Ml Solution, 30 MILLILITER PO DAILY, #2700 MILLILITER 10 Refills 11/16/16 Prednisone (PREDNISONE) 1 Mg Tablet, 10 MG PO DAILY, TABLET 11/16/16 Torsemide (TORSEMIDE) 20 Mg Tablet, 10 MG PO DAILY, TABLET 11/16/16 Docusate Calcium (SURFAK) 240 Mg Capsule, 240 MG PO HS, CAPSULE 11/16/16 Sacubitril/Valsartan (Entresto 24 mg-26 mg Tablet) 1 Each Tablet, 1 EACH PO DAILY, TABLET 06/11/16 Levothyroxine Sodium (LEVOTHYROXINE SODIUM) 50 Mcg Tablet, 100 MCG PO DAILY, TABLET 03/21/14 Carvedilol (CARVEDILOL) 3.125 Mg Tablet, 3.125 MG PO BID, TABLET 03/17/14 Past Medical History Medical History: arrhythmia, coronary artery disease, cardiac problems, COPD Surgical History: knee, pacemaker/ICD, shoulder, other Social History Smoking: quit greater than 1 year Alcohol Use: occassionally Drug Use: none Review of Systems Constitutional: no symptoms reported Respiratory: see HPI Cardiovascular: no symptoms reported Gastrointestinal: no symptoms reported Genitourinary: no symptoms reported Musculoskeletal: no symptoms reported All Other Systems: Reviewed and Negative Physical Exam General Appearance: No Apparent Distress, WD/WN Neck: Non-Tender, Full Range of Motion, Supple, Normal Inspection Respiratory: chest non-tender, no respiratory distress, decreased breath sounds , wheezing Cardiovascular: Normal Peripheral Pulses, Regular Rate, Rhythm, No Edema, No Gallop, No JVD, No Murmur Gastrointestinal: Normal Bowel Sounds, No Organomegaly, No Pulsatile Mass, Non Tender, Soft Extremities: Normal Range of Motion, Non-Tender, Normal Inspection, No Pedal Edema, No Calf Tenderness, Normal Capillary Refill Neurologic/Psychiatric: 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 II-XII NML as Tested, No Motor/Sensory Deficits, Alert, Normal Mood/Affect, Oriented x 3 Results/Orders Results/Orders Laboratory Tests Test 09/23/17 10:40 09/23/17 10:45 09/23/17 10:50 D-Dimer 2.03 mg/L (0.19-0.49) Sodium Level 140 mmol/L (132-145) Potassium Level 4.0 mmol/L (3.6-5.2) Chloride Level 104.0 mmol/L (96-109) Carbon Dioxide Level 32.7 mmol/L (20.0-32) Anion Gap 7.3 Blood Urea Nitrogen 22 mg/dL (7-18) Creatinine 2.01 mg/dL (0.59-1.40) Estimated GFR () 38.4 (>/=60) BUN/Creatinine Ratio 10.0 Glucose Level 81 mg/dL (70-110) Calcium Level 8.8 mg/dL (8.4-10.5) Total Bilirubin 0.4 mg/dL (0.2-1.0) Aspartate Amino Transf (AST/SGOT) 29 U/L (0-35) Alanine Aminotransferase (ALT/SGPT) 25 U/L (12-78) Alkaline Phosphatase 83 U/L (50-136) Total Creatine Kinase 62 U/L (39-308) Creatine Kinase MB 1.5 ng/mL (0.5-3.6) Troponin I 0.02 ng/mL (0.00-0.05) Pro-B-Type Natriuretic Peptide 273 pg/mL (0-450) Total Protein 6.4 g/dL (6.4-8.2) Albumin 3.5 g/dL (3.4-5.0) Globulin 2.9 White Blood Count 5.5 10^3/uL (4.5-11.0) Red Blood Count 3.61 10^6/uL (4.50-5.90) Hemoglobin 11.5 g/dL (13.9-16.3) Hematocrit 37.4 % (37.0-53.0) Mean Corpuscular Volume 103.6 fL (78-100) Mean Corpuscular Hemoglobin 31.9 pg (26-34) Mean Corpuscular Hemoglobin Concent 30.7 g/dL (33-37) Red Cell Distribution Width 13.5 % (11.5-14.5) Platelet Count 211 10^3/uL (150-400) Mean Platelet Volume 8.8 fL (7.8-11.0) Neutrophils (%) (Auto) 66.8 % (41.0-85.0) Lymphocytes (%) (Auto) 11.4 % (24.0-44.0) Monocytes (%) (Auto) 15.9 % (5.0-12.0) Neutrophils # (Auto) 3.7 10^3/uL (1.8-7.7) Lymphocytes # (Auto) 0.6 10^3/uL (1.0-4.8) Monocytes # (Auto) 0.9 10^3/uL (0.3-0.8) Absolute Immature Granulocyte (auto 0.02 10^3 u/L (0-2) Eosinophils % 5.1 % (0.0-5.0) Basophils % 0.4 % (0.0-0.2) Basophils # 0.0 10^3/uL (0.0-0.1) Eosinophil Count 0.3 10^3/uL (0.0-0.2) Percent Immature Gran (Cell Imm) 0.40 % (0.00-0.50) Blood Gas Sample Site RT BRACIAL ARTERY Blood Gas pH 7.403 (7.350-7.450) Blood Gas PCO2 46.2 mmHg (35.0-45.0) Blood Gas PO2 92.0 mmHg (75.0-100.0) Blood Gas HCO3 28.2 mmol/L (22.0-26.0) Blood Gas Base Excess 2.9 mmol/L (-2.0-2.0) Jimmy Test POSITIVE Arterial Blood Oxygen Saturation 96.7 % (95-) Deoxyhemoglobin 3.3 % (0.2-0.6) Carboxyhemoglobin 0.7 % (0.5-1.5) Methemoglobin 0.4 % (0.2-0.6) Total Hemoglobin 12.3 % (13.5-17.5) Total Oxygen Concentration 16.6 % (13.5-17.5) Lactic Acid (Blood Gas) 1.6 MMOL/L (0.5-1.0) Blood Gas Temperature 37 Oxygen Delivery Method (LAB) NASAL CANNULA FiO2 32 % (20-101) Bicarbonate 29.6 mmol/L (23-27) Administered Medications Medications (Trade) Dose Ordered Sig/Adelita Route PRN Reason Start Time Stop Time Status Last Admin Dose Admin Albuterol/ Ipratropium (Duoneb 0.5 Mg-3 Mg/3 ml Soln) 3 ml STAT STAT IH 09/23/17 10:24 09/23/17 10:27 DC 09/23/17 10:38 Dexamethasone Sodium Phosphate (Decadron) 4 mg STAT STAT IH 09/23/17 10:24 09/23/17 10:27 DC 09/23/17 10:38 Methylprednisolone Sodium Succinate (Solu-Medrol) 125 mg STAT STAT IM 09/23/17 10:24 09/23/17 10:27 DC 09/23/17 10:39 Progress Progress Patient feels fine to go home. Voices no complaints or concerns. Wheezes resolved. EKG/XRAY/CT/US EKG Comments: Paced rythm XRAY: chest (COPD) Consult/PCP Time Consult/PCP Called: 11:49 Consult/PCP: Dr. Crawford Reason/Comments: COPD exacerbation, D/C home Departure Time of Disposition: 11:50 Disposition: HOME, SELF-CARE Impression: Primary Impression: COPD exacerbation Condition: Improved Referrals: JUSTO MONDRAGON MD (PCP) PRIMARY CARE PROVIDER Additional Instructions: Z pack Medrol dose pack Continue breathing treatments at home F/U with Dr. Crawford in 2-3 days Duration or Time Spent with Pa: 40 mins OSVALDO APONTE MD Sep 23, 2017 10:28
[2017-09-23] MEDS ORDERED: DUONEB 0.5 MG-3 MG/3 ML SOLN IH ONE (10:32)
[2017-09-23] MEDS ORDERED: DECADRON ONE (10:32)
[2017-09-23] MEDS ORDERED: SOLU-MEDROL ONE (10:36)
[2017-09-23 10:56] LABS: BASOPHIL % 0.4 % (0.0-0.2); EOSINOPHIL # 0.3 10^3/uL (0.0-0.2); EOSINOPHIL % 5.1 % (0.0-5.0); HEMOGLOBIN 11.5 g/dL (13.9-16.3); LYMPHOCYTES # 0.6 10^3/uL (1.0-4.8); LYMPHOCYTES % 11.4 % (24.0-44.0); MEAN CELL HGB 31.9 pg (26-34); MEAN CELL HGB CONCENTRATION 30.7 g/dL (33-37); MEAN CORP VOLUME 103.6 fL (78-100); MEAN PLATELET VOLUME 8.8 fL (7.8-11.0); MONOCYTES # 0.9 10^3/uL (0.3-0.8); MONOCYTES % 15.9 % (5.0-12.0); NEUTROPHIL # 3.7 10^3/uL (1.8-7.7); NEUTROPHILS % 66.8 % (41.0-85.0); RED CELL DISTRIBUTION WIDTH 13.5 % (11.5-14.5); WHITE BLOOD CELL 5.5 10^3/uL (4.5-11.0)
[2017-09-23 10:57] LABS: ABG PCO2 46.2 mmHg (35.0-45.0); ABG PH 7.403 (7.350-7.450); BE(B) 2.9 mmol/L (-2.0-2.0); HCO3act 28.2 mmol/L (22.0-26.0)
--- NOTE | 2017-09-23 11:09 | PCM.EKG ---
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
--- NOTE | 2017-09-23 11:20 | DIREP ---
PROCEDURE:CHEST 1 VIEW COMPARISON:[facility], CR, XRAY CHEST 2 VWS, 04/14/2017, 07:38 AM. [facility], CR, XRAY CHEST 2 VWS, 09/15/2017, 04:31 PM. INDICATIONS:Dyspnea FINDINGS: LUNGS/PLEURA:Chronic interstitial thickening in the right mid lung field and small parenchymal scar in the left lung base. No airspace consolidation or pleural effusion. VASCULATURE:Normal. Unremarkable pulmonary vasculature. CARDIAC:Normal heart size. Implanted dual lead pacing device over left upper chest. MEDIASTINUM:Normal. No visible mass or adenopathy. BONES:No acute pathology. OTHER:Negative. CONCLUSION:No acute cardiac or pulmonary disease, no significant change from the prior exam. Dictated by: Rigo Diaz M.D. on 09/23/2017 at 11:19 AM
[2017-09-23 11:26] LABS: CALCIUM 8.8 mg/dL (8.4-10.5); CARBON DIOXIDE 32.7 mmol/L (20.0-32)
--- NOTE | 2017-09-23 12:08 | NUR ---
[facility] NOTIFIED JIN AT [facility] THAT RESIDENT IS READY TO BE TAKEN BACK TO [facility]ARY.
--- NOTE | 2017-09-23 12:22 | NUR ---
PT LEFT DEPT PT LEFT DEPT AT THIS TIME WITH [facility] [facility] STAFF.
[2017-09-23 12:34] VITALS: BP 145/81
== END 2017-09-23 12:01 | disposition home or self-care (01) ==
LOC: ER 09:46
DX: J44.1 Chronic obstructive pulmonary disease with (acute) exacerbation (principal); I25.10 Atherosclerotic heart disease of native coronary artery without angina pectoris; Z79.82 Long term (current) use of aspirin; Z95.0 Presence of cardiac pacemaker; Z87.891 Personal history of nicotine dependence; Z79.899 Other long term (current) drug therapy
CPT/HCPCS: 36415; 71010; 80053; 82550; 82553; 82803; 83880; 84484; 85025; 85379; 87040 ×2; 93005; 94640; 96372; 99285; J1100; J2930; J7620

== ENCOUNTER → 2017-10-31 | Outpatient (CLI) | payer MEDICARE, MEDICAID ==
--- NOTE | 2017-10-31 16:54 | DIREP ---
PROCEDURE: CT SPINE LUMBAR W/O TECHNIQUE:Axial cuts were obtained through the lumbar spine. The images were viewed at bone settings. COMPARISON:[facility], CT, CT SPINE LUMBAR W/O, 07/20/2017, 02:50 PM. INDICATIONS:LOW BACK PAIN FINDINGS: ALIGNMENT:Normal. VERTEBRAE:Vertebral body heights are normal. PARASPINAL AREA:Aortoiliac stent graft present. Right renal cyst present. OTHER:No additional findings. LUMBAR DISC LEVELS T12-L1:Normal. L1-L2:Normal. L2-L3:Moderate bilateral facet arthropathy. Mild bilateral neural foraminal stenosis.. L3-L4:Mild posterior disc bulge. Moderate bilateral facet arthropathy. Mild central canal stenosis. Mild bilateral neural foraminal stenosis.. L4-L5:Mild posterior disc bulge. Moderate bilateral facet arthropathy. Moderate central canal stenosis. Moderate bilateral neural foraminal stenosis. L5-S1:Mild posterior disc bulge. Marked bilateral facet arthropathy. Severe bilateral neural foraminal stenosis. CONCLUSION: 1. Marked bilateral neural foraminal stenosis at L5-S1 secondary to posterior disc bulge and bilateral facet arthropathy. 2. Moderate central canal stenosis and moderate bilateral neural foraminal none stenosis at L4-L5 secondary to posterior disc bulge and bilateral facet arthropathy. 3. Mild central canal stenosis and mild bilateral neural foraminal stenosis at L3-L4 secondary to posterior disc bulge and bilateral facet arthropathy. 4. Mild bilateral neural foraminal stenosis at L2-L3 secondary to bilateral facet arthropathy. Dictated by: Ottoniel Mendez M.D. on 10/31/2017 at 04:44 PM
== END | disposition home or self-care (01) ==
LOC: RAD 14:27
PROVIDERS: ATTEND Internal Medicine
DX: M48.061 Spinal stenosis, lumbar region without neurogenic claudication (principal); M25.552 Pain in left hip
CPT/HCPCS: 72131

== ENCOUNTER → 2017-11-23 | Outpatient (CLI) | payer MEDICARE, MEDICAID | END | disposition home or self-care (01) | LOC: CT 13:23 | PROVIDERS: ATTEND Internal Medicine | DX: M54.5 Low back pain (principal); M25.552 Pain in left hip; M79.605 Pain in left leg | CPT/HCPCS: 36415; 82565 ==

== ENCOUNTER 2017-12-01 16:30 | Emergency (ER) | payer MEDICARE, MEDICAID ==
[~2017-12-01] VITALS: Ht 188 cm; Wt 106.1 kg
[2017-12-01] MEDS ORDERED: TORADOL IM STA (17:38)
[2017-12-01] MEDS ORDERED: TORADOL ONE (17:42)
[2017-12-01] MEDS ORDERED: MORPHINE SULFATE ONE (17:43)
--- NOTE | 2017-12-01 17:46 | ER.PDOC ---
General Chief Complaint: Lower Back Pain or Injury Stated Complaint: BACK PAIN Time seen by : 18:00 Source: patient Exam Limitations: no limitations History of Present Illness Timing/Duration: this afternoon Severity/Quality: moderate Method of Injury: unknown Modifying Factors: improves with cold therapy Prior symptoms/Treatment: Similar symptoms previous Allergies: Coded Allergies: No Known Allergies (Unverified , 03/17/14) Home Meds Active Scripts Cephalexin (KEFLEX) 500 Mg Capsule, 500 MG PO TID for 5 Days Prov:HAYDEN RESENDIZ MD 04/16/17 [Magnesium Oxide] 400 MG TABLET No Conflict Check, 400 MG PO DAILY for 30 Days Prov:HAYDEN RESENDIZ MD 04/16/17 Gabapentin (NEURONTIN) 400 Mg Capsule, 400 MG PO BID for 30 Days, CAPSULE Prov:HAYDEN RESENDIZ MD 04/16/17 Duloxetine Hcl (CYMBALTA) 20 Mg Capsule.dr, 20 MG PO DAILY for 30 Days Prov:HAYDEN RESENDIZ MD 04/16/17 Amiodarone Hcl (CORDARONE) 200 Mg Tablet, 200 MG PO DAILY for 30 Days, TABLET Prov:HAYDEN RESENDIZ MD 04/16/17 Clopidogrel Bisulfate (PLAVIX) 75 Mg Tablet, 75 MG PO DAILY for 30 Days Prov:HAYDEN RESENDIZ MD 12/09/16 Aspirin (ASPIRIN) 81 Mg Tab.chew, 81 MG PO DAILY for 30 Days Prov:HAYDEN RESENDIZ MD 12/09/16 Levalbuterol Hcl (XOPENEX) 0.63 Mg/3 Ml Vial.neb, 0.63 MG IH RTQID for 10 Days Prov:HAYDEN RESENDIZ MD 12/08/16 Na Phos,M-B/Na Phos,Di-Ba (FLEET ENEMA) 133 Ml Enema, 133 ML RC PRN Y for CONSTIPATION for 10 Days Prov:HAYDEN RESENDIZ MD 11/23/16 Guaifenesin/Codeine Phosphate (Guaifenesin-Codeine Syrup) 5 Ml Liquid, 5 ML PO Q4HR Y for COUGH for 14 Days Prov:HAYDEN RESENDIZ MD 11/23/16 Temazepam (TEMAZEPAM) 30 Mg Capsule, 1 CAP PO HS Y for SLEEP, #30 CAP 1 Refill Prov:HAYDEN RESENDIZ MD 09/14/16 Lorazepam (LORAZEPAM) 0.5 Mg Tablet, 1 TAB PO BID Y for ANXIETY, #60 TAB Prov:HAYDEN RESENDIZ MD 09/14/16 Hydrocodone Bit/Acetaminophen (NORCO 5-325) 1 Each Tablet, 1 EACH PO Q4H Y for PAIN, #30 TAB Prov:HAYDEN RESENDIZ MD 09/14/16 Pantoprazole Sodium (PROTONIX) 40 Mg Tablet.dr, 40 MG PO DAILY for 30 Days Prov:HAYDEN RESENDIZ MD 09/14/16 Budesonide (PULMICORT) 0.5 Mg/2 Ml Ampul.neb, 0.5 MG IH BID for 30 Days Prov:HAYDEN RESENDIZ MD 09/14/16 Reported Medications Lactulose (LACTULOSE) 10 Gm/15 Ml Solution, 30 MILLILITER PO DAILY, #2700 MILLILITER 10 Refills 11/16/16 Prednisone (PREDNISONE) 1 Mg Tablet, 10 MG PO DAILY, TABLET 11/16/16 Torsemide (TORSEMIDE) 20 Mg Tablet, 10 MG PO DAILY, TABLET 11/16/16 Docusate Calcium (SURFAK) 240 Mg Capsule, 240 MG PO HS, CAPSULE 11/16/16 Sacubitril/Valsartan (Entresto 24 mg-26 mg Tablet) 1 Each Tablet, 1 EACH PO DAILY, TABLET 06/11/16 Levothyroxine Sodium (LEVOTHYROXINE SODIUM) 50 Mcg Tablet, 100 MCG PO DAILY, TABLET 03/21/14 Carvedilol (CARVEDILOL) 3.125 Mg Tablet, 3.125 MG PO BID, TABLET 03/17/14 Past Medical History Medical History: hypertension Surgical History: pacemaker/ICD Social History Smoking: non-smoker Drug Use: none Review of Systems All Other Systems: Reviewed and Negative Physical Exam General Appearance: No Apparent Distress, WD/WN HEENT: PERRL/EOMI, Normal ENT Inspection, TMs Normal, Pharynx Normal Neck: Non-Tender, Normal Alignment Cardiovascular/Respiratory: Regular Rate, Rhythm, No M/R/G, Normal Peripheral Pulses, No JVD, Normal Breath Sounds, No Respiratory Distress Gastrointestinal: Normal Bowel Sounds, No Organomegaly, No Pulsatile Mass, Non Tender, Soft Back: Vertebral Tenderness (l5-s1) Extremities: No Evidence of Injury, Normal Range of Motion, Non-Tender, No Pedal Edema, Pelvis Stable Neuro/Psych: Alert, 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
--- NOTE | 2017-12-01 17:57 | NUR ---
[facility] PT WANTED ME TO CALL [facility] AND INFORM THEM THAT HE IS IN THE ED. CALLED [facility] AND INFORMED THEM THAT PT IS IN THE ER AND IF THE SENIOR CARE WILL PICK HIM UP OR IF THE PT NEEDS TO CALL HIS DAUGHTER. PER CATHERINE, SHE WILL TRY TO FIND OUT IF THEY HAVE SOMEONE TO COME PICK PT UP AND WILL CALL THE ED BACK
[2017-12-01] MEDS ORDERED: MORPHINE SULFATE IM PRN (18:00)
[2017-12-01 18:15] VITALS: BP 169/87
[2017-12-01 18:16] VITALS: BP 169/87
== END 2017-12-01 18:20 | disposition home or self-care (01) ==
LOC: ER 16:30 → EEVIPCON 16:30 → ER 18:20
DX: M54.5 Low back pain (principal); I10 Essential (primary) hypertension; Z79.82 Long term (current) use of aspirin; Z95.0 Presence of cardiac pacemaker; Z79.899 Other long term (current) drug therapy
CPT/HCPCS: 96372 ×2; 99284; J1885; J2270

== ENCOUNTER 2017-12-08 19:36 | Inpatient (IN) | payer MEDICARE, MEDICAID ==
[~2017-12-08] VITALS: Ht 188 cm; Wt 104.5 kg
[2017-12-08] VITALS (7 sets, daily range): BP systolic 78–100; BP diastolic 49–63
--- NOTE | 2017-12-08 19:50 | NUR ---
ARRIVAL PT ARRIVED TO ER 1 VIA EMS STRETCHER WITH C/O WEAKNESS. EMS STATES WAS CALLED OUT FOR LIFT ASSIST FOR WEAKNESS. [facility] PT'S O2 WAS IN MID TO LOW 80S SO THEY PUT HIM ON 3L NC. EDP IN ROOM.
--- NOTE | 2017-12-08 19:58 | PCM.EKG ---
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
[2017-12-08 20:15] LABS: BASOPHIL % 0.2 % (0.0-0.2); EOSINOPHIL % 0.2 % (0.0-5.0); HEMOGLOBIN 11.3 g/dL (13.9-16.3); LYMPHOCYTES # 0.5 10^3/uL (1.0-4.8); MEAN CELL HGB 31.2 pg (26-34); MEAN CELL HGB CONCENTRATION 30.5 g/dL (33-37); MEAN CORP VOLUME 102.2 fL (78-100); MONOCYTES # 1.2 10^3/uL (0.3-0.8); MONOCYTES % 9.6 % (5.0-12.0); NEUTROPHIL # 10.7 10^3/uL (1.8-7.7); NEUTROPHILS % 85.3 % (41.0-85.0); RED CELL DISTRIBUTION WIDTH 14.8 % (11.5-14.5); WHITE BLOOD CELL 12.6 10^3/uL (4.5-11.0)
--- NOTE | 2017-12-08 20:18 | NUR ---
UPDATE PT STATES NEEDS TO URINATE. SONG CATHETER PLACED BY ROSARIO MCKINNEY AT THIS TIME.
[2017-12-08] MEDS ORDERED: NS 1000ML 1,000 ML IV STA (20:24)
--- NOTE | 2017-12-08 20:25 | NUR ---
IV IV 20G STARTED TO R AC MAINTAINING ASEPTIC TECHNIQUE. BLOOD DRAWN FOR LAB AT THIS TIME. NS 1000 ML/HR BOLUS STARTED PER DR. CHEN WITH LOW BLOOD PRESSURE NOTED. PATIENT RESTING IN BED. DENIES NEEDS AT THIS TIME. WARM BLANKETS PROVIDED.
[2017-12-08] MEDS ORDERED: NARCAN IV STA (20:32)
[2017-12-08] MEDS ORDERED: NARCAN ONE (20:34)
--- NOTE | 2017-12-08 20:40 | NUR ---
FAMILY FAMILY AT BEDSIDE TALKING WITH PATIENT. DENIES NEEDS AT THIS TIME.
[2017-12-08 20:48] LABS: CALCIUM 8.4 mg/dL (8.4-10.5); CARBON DIOXIDE 28.3 mmol/L (20.0-32)
--- NOTE | 2017-12-08 20:52 | NUR ---
D DIMER D DIMER OF 5.[address] CHEN NOTIFIED. VERBALIZED UNDERSTANDING. NO NEW ORDERS AT THIS TIME.
[2017-12-08 20:59] LABS: DIFFERENTIAL COMMENT NORMAL; LYMPHOCYTE 9 % (25-36); MONOCYTE 8 % (3-9); SEGMENTED NEUTROPHILS 83 % (31-76)
--- NOTE | 2017-12-08 21:08 | DIREP ---
PROCEDURE:CHEST 1 VIEW COMPARISON:[facility], CR, XRAY CHEST SINGLE VW, 09/23/2017, 10:46 AM. [facility], CR, XRAY CHEST 2 VWS, 09/15/2017, 04:31 PM. INDICATIONS:weakness, peripheral edema FINDINGS: LUNGS/PLEURA:Chronic interstitial thickening in the right mid lung field and small parenchymal scar in the bilateral lung bases. No airspace consolidation or pleural effusion. Underinflated lungs. VASCULATURE:Normal. Unremarkable pulmonary vasculature. CARDIAC:Normal heart size. Implanted dual lead pacing device over left upper chest. MEDIASTINUM:Normal. No visible mass or adenopathy. BONES:No acute pathology. OTHER:Negative. CONCLUSION:Underinflated lungs with chronic prominent interstitial markings at the lung bases bilaterally. This is somewhat increased in the right mid to lower lung field possibly exaggerated by underinflation. No jazz consolidation. Dictated by: Rigo Bowden MD on 12/08/2017 at 09:05 PM
--- NOTE | 2017-12-08 21:15 | NUR ---
FAMILY FAMILY AT BEDSIDE ASKING QUESTIONS ABOUT ADMISSION POSSIBILITIES. ADVISED FAMILY AWAITING LAB RESULTS AND WILL KEEP INFORMED WITH PT STATUS. FAMILY STATES NO OTHER CONCERNS AT THIS TIME.
--- NOTE | 2017-12-08 21:35 | NUR ---
POSITION REPOSITIONED PT AT THIS TIME. PT STATES MORE COMFORTABLE. BLANKETS ADJUSTED. PT STATES NO OTHER NEEDS AT THIS TIME.
[2017-12-08] MEDS ORDERED: NS 1000ML 1,000 ML ONE (21:38)
--- NOTE | 2017-12-08 22:10 | NUR ---
VERBAL ORDER FOR LITER OF NS TO BE HUNG TKO. HUNG AT THIS TIME. PT RESTING IN BED AT THIS TIME. FAMILY AT BEDSIDE VISITING.
--- NOTE | 2017-12-08 22:20 | NUR ---
BLOOD PRESSURE DR CHEN NOTIFIED OF DECREASED BP. NEW ORDERS TO RUN TKO FLUIDS AT BOLUS RATE.
--- NOTE | 2017-12-08 22:51 | NUR ---
DR EDNA CHEN ON THE PHONE REGARDING DR BISHOP AT THIS TIME.
[2017-12-08] MEDS ORDERED: HEPARIN-D5W 20,000 UNIT/500 ML 500 ML IV ONE (22:58)
--- NOTE | 2017-12-08 23:00 | NUR ---
VERBAL ORDER [place]BAL [place] [id number] UN[place] HEPARIN DRIP RUNNING AT 1000 UNITS/HR.
--- NOTE | 2017-12-08 23:05 | NUR ---
VERBAL ORDER VERBAL ORDER FOR ANOTHER LITER OF NS. NS HUNG AT THIS TIME.
--- NOTE | 2017-12-08 23:51 | NUR ---
BOWEL MOVEMENT LARGE BROWN SOFT BOWEL MOVEMENT NOTED. PATIENT CLEANSED WITH NEW SHEETS AND GOWN DAWNED. NEW WARM BLANKETS PROVIDED. PATIENT ALERT BUT REMAINS DISORIENTED. DENIES NEEDS AT THIS TIME. DR. CHEN NOTIFIED OF PATIENT STATUS. VERBALIZED UNDERSTANDING.
[2017-12-09] VITALS (8 sets, daily range): BP systolic 55–107; BP diastolic 19–58
[2017-12-09] MEDS ORDERED: NS 1000ML 1,000 ML IV STA ×2 (00:05→01:00)
--- NOTE | 2017-12-09 00:14 | NUR ---
PATIENT STATUS PATIENT ATTEMPTING TO GET OUT OF BED. PATIENT REMAINS DISORIENTED TO PLACE. RE-ORIENTED PATIENT AND RE-POSITIONED PATIENT IN BED. O2 NC TAKEN OFF BY PATIENT WITH SAT AT 87%. O2 NC RE-APPLIED WITH SAT UP TO 94%. DR. CHEN NOTIFIED OF PATIENT STATUS. VERBALIZED UNDERSTANDING. NO NEW ORDERS AT THIS TIME.
[2017-12-09] MEDS ORDERED: HEPARIN IV SCH (00:30)
--- NOTE | 2017-12-09 00:50 | NUR ---
PT UPDATE PT PULLING BLANKET OFF, DISORIENTED AND STATES COLD. PT REORIENTED TO PLACE AND BLANKET REPLACED. PT STATES FEELS MUCH WARMER, RESTING. PT STATES NO OTHER CONCERNS AT THIS TIME.
--- NOTE | 2017-12-09 01:24 | NUR ---
ICU PT TO ICU 6 VIA STRETCHER. PT'S BELONGING TAKEN WITH PT TO ICU. REPORT GIVEN TO ROSARIO MYLES.
--- NOTE | 2017-12-09 01:30 | NUR ---
PATIENT ARRIVED TO ICU 6 VIA STRETCHER. PT HAS HAD A BM. PLACED ON CANDY BUTCHER, NIBP, CONT PULSE OX AND PATIENT CLEANED. PATIENT CONTINUES TO HAVE COPIOUS AMOUNTS OF LIQUID STOOL. FLEXISEAL PLACED. PATIENT CONTINUES TO LEAK AROUND FLEXISEAL. UNABLE TO OBTAIN BP. MANUAL BP TAKEN 68/30. DR BISHOP NOTIFIED AND NS BOLUS STARTED.
[2017-12-09] MEDS ORDERED: NORCO 5MG PO PRN (02:00)
[2017-12-09] MEDS ORDERED: ROBITUSSIN AC PO PRN (02:00)
[2017-12-09] MEDS ORDERED: NON-FORMULARY MEDICATION 1 EA EA PO PRN (02:00)
[2017-12-09] MEDS ORDERED: ATIVAN PO PRN (02:00)
--- NOTE | 2017-12-09 02:00 | NUR ---
UNABLE TO OBTAIN MANUAL BP AFTER SEVERAL ATTEMPTS. DR BISHOP AWARE.
[2017-12-09] MEDS ORDERED: NS 1000ML 1,000 ML ONE ×2 (02:05→02:51)
--- NOTE | 2017-12-09 02:30 | NUR ---
PATIENT FAMILY NOTIFIED OF PATIENT DECLINE.
--- NOTE | 2017-12-09 02:30 | NUR ---
NS BOLUS STARTED. STILL UNABLE TO OBTAIN MANUAL BP.
[2017-12-09 02:40] LABS: ABG PH 7.228 (7.350-7.450); BE(B) -7.5 mmol/L (-2.0-2.0); pO2 46.5 mmHg (75.0-100.0)
[2017-12-09] MEDS ORDERED: ZOFRAN IV PRN (03:00)
[2017-12-09] MEDS ORDERED: MORPHINE SULFATE IV PRN (03:00)
[2017-12-09] MEDS ORDERED: NS 1000ML 1,000 ML IV ONE ×2 (03:00)
[2017-12-09] MEDS ORDERED: ZOSYN 2.25GM 2.25 GM in NS 100ML 100 ML IV SCH (03:00)
[2017-12-09] MEDS ORDERED: ATIVAN IV PRN (03:00)
[2017-12-09] MEDS ORDERED: ATIVAN ONE (03:04)
[2017-12-09] MEDS ORDERED: NS 100ML 100 ML IV ONE (03:05)
[2017-12-09] MEDS ORDERED: ZOSYN IV ONE (03:05)
--- NOTE | 2017-12-09 03:10 | NUR ---
UNABLE TO GIVE ATIVAN DUE TO PATIENT HAVING 20-30 SECOND [address]OD[address] OF [address]A. [address] BISHOP NOTIFIED.
--- NOTE | 2017-12-09 03:20 | NUR ---
DR BISHOP NOTIFIED OF PATIENTS PERIODS OF APNEA. RN TO PRONOUNCE PER DR BISHOP.
--- NOTE | 2017-12-09 03:23 | NUR ---
TOD 0323 NO RESPIRATIONS OR HEART TONES AUSCULTATED X 60 SECONDS BY JEANINE RN AND THIS RN.
--- NOTE | 2017-12-09 03:30 | NUR ---
PATIENTS DAUGHTER AND SON IN LAW ARRIVED. FAMILY INFORMED OF PATIENTS .
--- NOTE | 2017-12-09 03:46 | NUR ---
[employer] NOTIFIED, PATIENT RULED OUT FOR ORGAN/TISSUE DONATION BY [employer]. CASE # [id number] SPOKE WITH DAVID HELM
--- NOTE | 2017-12-09 03:50 | NUR ---
[facility] OFFICE CONTACTED FOR ALEXANDRA TO RELEASE REMAINS TO HOME.
--- NOTE | 2017-12-09 04:20 | NUR ---
ALEXANDRA VERA AT BEDSIDE. REMAINS OK TO BE RELEASED PER ALEXANDRA.
[2017-12-09] MEDS ORDERED: HEPARIN-D5W 20,000 UNIT/500 ML 500 ML IV ONE (04:30)
--- NOTE | 2017-12-09 04:30 | NUR ---
[facility] HOME CONTACTED PER FAMILY REQUEST.
--- NOTE | 2017-12-09 05:45 | NUR ---
PATIENT REMAINS RELEASED TO [facility] HOME.
[2017-12-09] MEDS ORDERED: DUONEB 0.5 MG-3 MG/3 ML SOLN IH SCH (06:00)
--- NOTE | 2017-12-09 06:36 | HPH ---
ADMIT DATE: 12/08/2017 The patient is seen upon arrival to the ICU at approximately 2:00 a.m. CHIEF COMPLAINT: Unknown. The ER notes are not complete, but he was apparently found down at [facility]. HISTORY OF PRESENT ILLNESS: The patient is an 87-year-old man with a past medical history significant for coronary artery disease, cardiomyopathy with an EF of approximately 25%, history of lung cancer, paroxysmal atrial fibrillation, interstitial lung disease, COPD and depression. EMS brought him to the Emergency Room from [facility] when he was found on the floor. By the notes of the ER summary note, he arrived at approximately 7:26 p.m. and was registered at 7:36 p.m. in the Emergency Room. His initial sepsis screen showed a systolic pressure less than 90, with a MAP less than 65 and mental status changes. This was performed at approximately 19:48. According to the ER notes, he was found with oxygen saturations in the low 80s with a glucose of 144. His initial blood pressure was recorded 78/49 with a mean pressure of 59. He was on oxygen 3 liters nasal cannula. It is unclear if any interventions were performed. He was in the ER almost 6 hours and apparently had 3 liters of fluid given. As stated earlier, his initial blood pressure was 78/49. Apparently, this was recorded sometime around initial arrival at 19:39. He had the same vital signs at 19:53. His next blood pressure recording that was in the notes was at 1:25 a.m. at 102/47. Upon arrival to the ICU, he has some tonic-clonic twitching, some very slow horizontal nystagmus. He had a paced rhythm. It was difficult to find a peripheral pulse and his GCS was approximately 4. He did retract to pain. In the ER workup, apparently, he had an elevated troponin. Cardiology was consulted and he was placed on heparin drip. Upon arrival, he had a high volume liquid stool. Rectal tube was placed and continued to have continued drainage of stool via the rectum. He was also given 2 doses of naloxone in the Emergency Room. This was at approximately 20:33 and 20:35. There is no documentation of any antibiotics or other medications given. PAST MEDICAL HISTORY: From what can be determined includes coronary artery disease, congestive heart failure, systolic dysfunction with last known LVEF of approximately 25%, ischemic cardiomyopathy, multiple episodes of V-tach, paroxysmal atrial fibrillation, MRSA pneumonia, lung cancer and COPD. PAST SURGICAL HISTORY: He has a pacemaker placed, but other surgeries are unknown. ALLERGIES: NO KNOWN DRUG ALLERGIES. HOME MEDICATIONS: List from the [facility] includes amiodarone 200 mg daily, aspirin 81 mg daily, Pulmicort twice a day, carvedilol 3.125 mg twice a day, he apparently is on Keflex 500 mg 3 times a day, Plavix 75 mg daily, Colace 240 mg at night, Cymbalta 20 mg daily, gabapentin 400 mg b.i.d., Robitussin-AC as needed for cough, [place] 5/325 as needed for pain, lactulose 20 grams daily, Xopenex as needed, levothyroxine 50 mcg daily, lorazepam 0.5 mg twice a day as needed, Fleet enema as needed, Protonix 40 mg daily, prednisone 10 mg daily, Entresto daily, temazepam at night, torsemide 10 mg daily, magnesium oxide 400 mg daily. SOCIAL HISTORY: Resident of [facility]. No alcohol, tobacco or illicit drug use history is known. FAMILY HISTORY: No known early coronary artery disease or diabetes. REVIEW OF SYSTEMS: Unable to obtain due to a GCS of approximately 4 upon arrival. PHYSICAL EXAMINATION: VITAL SIGNS: Upon arrival to the ER, height 187.9 cm, weight 104.3 kilograms, initial temperature recorded 97.5, pulse of 72, respiratory rate is 18, blood pressure 78/49 and O2 saturations was 100% on nasal cannula, it is not documented how much oxygen was used. GENERAL: Now, he is responsive minimally to sternal rub and GCS of 4. HEENT: He had initially some very slow horizontal nystagmus. Sclerae are anicteric. Oropharynx, visualized portions are clear. Mucous membranes are dry. NECK: Supple, no lymphadenopathy. CARDIOVASCULAR: Paced rhythm at 70. LUNGS: He does have some end expiratory wheezing, no coarse breath sounds noted. ABDOMEN: Soft, obese. Bowel sounds are present. EXTREMITIES: No cyanosis, clubbing. He has chronic lower extremity venous stasis skin changes and lower extremity mild lymphedema. NEUROLOGIC: At time of exam, as stated earlier, GCS of 3. He has some tonic-clonic jerks all over at time of exam. INITIAL LABORATORY DATA: CBC: White count 12.6, hemoglobin 11.3 and platelets 257. Differential: 85% neutrophils, 4% lymphocytes and 9% monocytes. Sodium 137, potassium 5.1, chloride 100, CO2 is 28, BUN 30, creatinine 3.09, glucose 119, calcium is 8.4, total bilirubin 0.7, AST is 189 and ALT is 138, alkaline phosphatase 119, troponin I is 12.02, proBNP is 5532, but he has significant renal failure, total protein 6.9 and albumin 3.3. PT 11.4, PTT 26.6 and D-dimer is 5.14. H. pylori is negative. IMAGING STUDIES: Chest x-ray performed in the Emergency Room revealed chronic markings. ASSESSMENT AND PLAN: The patient is an 87-year-old man here with septic shock, probably due to aspiration pneumonia with multiorgan failure. 1. Discussed with his daughter on the phone, he is a code status DNR. 2. We will continue IV fluid boluses for now. He is still hypotensive. He arrived with a small peripheral IV from the ER. We will continue fluid hydration and may be attempt to get second IV. We will start broad spectrum antibiotics, although he does have significant diarrhea, he could have C. diff colitis. He has reportedly been on Keflex recently. 3. At this point, we will hold the heparin. He has known ischemic cardiomyopathy with EF of less than 25%, AICD in place. 4. He has anemia due to chronic disease. 5. At this point, very poor prognosis. He appears to be on the verge of demise, it is unclear of most of his history and at this point, we may be dealing with severe sepsis and multiorgan failure due to unknown etiology, possible infection versus a cardiac event. Time spent on history and physical on 12/09/2017 at 2:00 a.m. upon arrival to the ICU is approximately 1 hour. The plan was initially discussed with the daughter. She does understand. She was informed that he is not doing well. Hu Marin MD DR: MERLE/donato JOB# [id number] RAPHAEL
[2017-12-09] MEDS ORDERED: SYNTHROID PO SCH (09:00)
[2017-12-09] MEDS ORDERED: NEURONTIN PO SCH (09:00)
[2017-12-09] MEDS ORDERED: CYMBALTA PO SCH (09:00)
[2017-12-09] MEDS ORDERED: ENTRESTO 24 MG-26 MG TABLET PO SCH (09:00)
[2017-12-09] MEDS ORDERED: COREG PO SCH (09:00)
[2017-12-09] MEDS ORDERED: ASPIRIN PO SCH (09:00)
[2017-12-09] MEDS ORDERED: NON-FORMULARY MEDICATION 1 EA EA PO SCH (09:00)
[2017-12-09] MEDS ORDERED: CORDARONE PO SCH (09:00)
[2017-12-09] MEDS ORDERED: CEPHULAC PO SCH (09:00)
[2017-12-09] MEDS ORDERED: PLAVIX PO SCH (09:00)
[2017-12-09] MEDS ORDERED: VANCOMYCIN HCL 1 GM in NS 250ML 250 ML IV SCH (09:00)
[2017-12-09] MEDS ORDERED: PROTONIX PO SCH (09:00)
[2017-12-09] MEDS ORDERED: SURFAK PO SCH (21:00)
--- NOTE | 2017-12-14 10:38 | ER.PDOC ---
General Chief Complaint: General Complaint Stated Complaint: SEPTIC SHOCK Time seen by : 19:55 Source: EMS Exam Limitations: clinical condition History of Present Illness Initial Comments EMS reports that they were called initially for lift assist. upon exam pt was found to have SaO2 in 80's and was started on supplemental O2. Because of body habitus/weight, fire department was called to help lift patient on [place] and transport to ED for evaluation. EMS noted that pt takes [place] and presentation suggested some somnolense due to opioids. Timing/Duration: 1-3 hours Severity: moderate Activities at Onset: rest Prior Episodes/Possible Cause: occasional episodes Modifying Factors: improves with oxygen Allergies: Coded Allergies: No Known Allergies (Unverified , 03/17/14) Home Meds Active Scripts Cephalexin (KEFLEX) 500 Mg Capsule, 500 MG PO TID for 5 Days Prov:HAYDEN RESENDIZ MD 04/16/17 [Magnesium Oxide] 400 MG TABLET No Conflict Check, 400 MG PO DAILY for 30 Days Prov:HAYDEN RESENDIZ MD 04/16/17 Gabapentin (NEURONTIN) 400 Mg Capsule, 400 MG PO BID for 30 Days, CAPSULE Prov:HAYDEN RESENDIZ MD 04/16/17 Duloxetine Hcl (CYMBALTA) 20 Mg Capsule.dr, 20 MG PO DAILY for 30 Days Prov:HAYDEN RESENDIZ MD 04/16/17 Amiodarone Hcl (CORDARONE) 200 Mg Tablet, 200 MG PO DAILY for 30 Days, TABLET Prov:HAYDEN RESENDIZ MD 04/16/17 Clopidogrel Bisulfate (PLAVIX) 75 Mg Tablet, 75 MG PO DAILY for 30 Days Prov:HAYDEN RESENDIZ MD 12/09/16 Aspirin (ASPIRIN) 81 Mg Tab.chew, 81 MG PO DAILY for 30 Days Prov:HAYDEN RESENDIZ MD 12/09/16 Levalbuterol Hcl (XOPENEX) 0.63 Mg/3 Ml Vial.neb, 0.63 MG IH RTQID for 10 Days Prov:HAYDEN RESENDIZ MD 12/08/16 Na Phos,M-B/Na Phos,Di-Ba (FLEET ENEMA) 133 Ml Enema, 133 ML RC PRN Y for CONSTIPATION for 10 Days Prov:HAYDEN RESENDIZ MD 11/23/16 Guaifenesin/Codeine Phosphate (Guaifenesin-Codeine Syrup) 5 Ml Liquid, 5 ML PO Q4HR Y for COUGH for 14 Days Prov:HAYDEN RESENDIZ MD 11/23/16 Temazepam (TEMAZEPAM) 30 Mg Capsule, 1 CAP PO HS Y for SLEEP, #30 CAP 1 Refill Prov:HAYDEN RESEDNIZ MD 09/14/16 Lorazepam (LORAZEPAM) 0.5 Mg Tablet, 1 TAB PO BID Y for ANXIETY, #60 TAB Prov:HAYDEN RESENDIZ MD 09/14/16 Hydrocodone Bit/Acetaminophen (NORCO 5-325) 1 Each Tablet, 1 EACH PO Q4H Y for PAIN, #30 TAB Prov:HAYDEN RESENDIZ MD 09/14/16 Pantoprazole Sodium (PROTONIX) 40 Mg Tablet.dr, 40 MG PO DAILY for 30 Days Prov:HAYDEN RESENDIZ MD 09/14/16 Budesonide (PULMICORT) 0.5 Mg/2 Ml Ampul.neb, 0.5 MG IH BID for 30 Days Prov:HAYDEN RESENDIZ MD 09/14/16 Reported Medications Lactulose (LACTULOSE) 10 Gm/15 Ml Solution, 30 MILLILITER PO DAILY, #2700 MILLILITER 10 Refills 11/16/16 Prednisone (PREDNISONE) 1 Mg Tablet, 10 MG PO DAILY, TABLET 11/16/16 Torsemide (TORSEMIDE) 20 Mg Tablet, 10 MG PO DAILY, TABLET 11/16/16 Docusate Calcium (SURFAK) 240 Mg Capsule, 240 MG PO HS, CAPSULE 11/16/16 Sacubitril/Valsartan (Entresto 24 mg-26 mg Tablet) 1 Each Tablet, 1 EACH PO DAILY, TABLET 06/11/16 Levothyroxine Sodium (LEVOTHYROXINE SODIUM) 50 Mcg Tablet, 100 MCG PO DAILY, TABLET 03/21/14 Carvedilol (CARVEDILOL) 3.125 Mg Tablet, 3.125 MG PO BID, TABLET 03/17/14 Past Medical History Medical History: arrhythmia, cancer, cardiac problems, COPD, hypertension Surgical History: cardiac cath, pacemaker/ICD Social History Smoking: non-smoker Alcohol Use: none Drug Use: Hydrocodone Reviewed Nursing Reviewed: Vital Signs, Abn. Noted Review of Systems Constitutional: see HPI, malaise, weakness EENTM: no symptoms reported Respiratory: see HPI, shortness of breath Gastrointestinal: no symptoms reported Musculoskeletal: no symptoms reported Psychiatric/Neurological: see HPI, weakness, other (Ox2) Hematologic/Lymphatic: no symptoms reported Physical Exam General Appearance: Lethargic HEENT: Pharynx Normal Neck: Non-Tender Respiratory: decreased breath sounds Cardiovascular: Regular Rate, Rhythm Gastrointestinal: No Pulsatile Mass, Non Tender Extremities: No Calf Tenderness, Pedal Edema, Swelling Neurologic/Psychiatric: Motor Weakness, Depressed Affect Skin: Normal Color, Warm/Dry Results/Orders Results/Orders Laboratory Tests Test 12/08/17 20:09 12/08/17 20:21 White Blood Count 12.6 10^3/uL (4.5-11.0) Red Blood Count 3.62 10^6/uL (4.50-5.90) Hemoglobin 11.3 g/dL (13.9-16.3) Hematocrit 37.0 % (37.0-53.0) Mean Corpuscular Volume 102.2 fL (78-100) Mean Corpuscular Hemoglobin 31.2 pg (26-34) Mean Corpuscular Hemoglobin Concent 30.5 g/dL (33-37) Red Cell Distribution Width 14.8 % (11.5-14.5) Platelet Count 257 10^3/uL (150-400) Mean Platelet Volume 9.0 fL (7.8-11.0) Neutrophils (%) (Auto) 85.3 % (41.0-85.0) Lymphocytes (%) (Auto) 4.0 % (24.0-44.0) Monocytes (%) (Auto) 9.6 % (5.0-12.0) Neutrophils # (Auto) 10.7 10^3/uL (1.8-7.7) Lymphocytes # (Auto) 0.5 10^3/uL (1.0-4.8) Monocytes # (Auto) 1.2 10^3/uL (0.3-0.8) Absolute Immature Granulocyte (auto 0.09 10^3 u/L (0-2) Eosinophils % 0.2 % (0.0-5.0) Basophils % 0.2 % (0.0-0.2) Basophils # 0.0 10^3/uL (0.0-0.1) Eosinophil Count 0.0 10^3/uL (0.0-0.2) Prothrombin Time 11.4 SEC (9.8-11.9) Prothrombin Time INR (Non-Therap) 1.1 Activated Partial Thromboplast Time 26.6 SEC (24.67-30.72) D-Dimer 5.14 mg/L (0.19-0.49) Sodium Level 137 mmol/L (132-145) Potassium Level 5.1 mmol/L (3.6-5.2) Chloride Level 100.0 mmol/L (96-109) Carbon Dioxide Level 28.3 mmol/L (20.0-32) Anion Gap 13.8 Blood Urea Nitrogen 30 mg/dL (7-18) Creatinine 3.09 mg/dL (0.59-1.40) Estimated GFR () 23.4 (>/=60) BUN/Creatinine Ratio 9.0 Glucose Level 119 mg/dL (70-110) Calcium Level 8.4 mg/dL (8.4-10.5) Total Bilirubin 0.7 mg/dL (0.2-1.0) Aspartate Amino Transf (AST/SGOT) 189 U/L (0-35) Alanine Aminotransferase (ALT/SGPT) 138 U/L (12-78) Alkaline Phosphatase 119 U/L (50-136) Troponin I 12.02 ng/mL (0.00-0.05) Pro-B-Type Natriuretic Peptide 5532 pg/mL (0-450) Total Protein 6.9 g/dL (6.4-8.2) Albumin 3.3 g/dL (3.4-5.0) Globulin 3.6 Percent Immature Gran (Cell Imm) 0.70 % (0.00-0.50) Helicobacter pylori Screen NEGATIVE (NEGATIVE) Differential Total Cells Counted 100 #CELLS Segmented Neutrophils 83 % (31-76) Lymphocytes 9 % (25-36) Monocytes 8 % (3-9) Differential Comment NORMAL Platelet Estimate ADEQUATE Platelet Morphology NORMAL Blood Morphology Comment NORMAL MORPHOLOGY Progress Progress pt initially maintained lethargic affect, brightened after dose of narcan. subsequent D-dimer elevated , but creat elevated precluded CT angio, then troponin was reported as elevated as well, consulted Dr Pete who was covering for Dr Resendiz. he recommended admit to ICU and run heparin drip. spoke with Dr marin who accepts pt to ICU Consult/PCP Time Consult/PCP Called: 22:30 Consult/PCP: Dr Pete Reason/Comments: admit to hospitalist, place on heparind drip #2 Time Consult/PCP Called: 22:45 Consult/PCP: Dr Marin Reason/Comments: discussed request to admit to hospitalist, elevated troponin, HX COPD Departure Time of Disposition: 22:55 Disposition: 09 ADMITTED INPATIENT Impression: Primary Impression: Elevated troponin Additional Impressions: Renal failure (ARF), acute on chronic Dementia Condition: Critical Referrals: JUSTO MONDRAGON MD (PCP) PRIMARY CARE PROVIDER Duration or Time Spent with Pa: 2hrs Critical Care Note Total Time (mins): 60 Problem Qualifiers Additional Impressions: Renal failure (ARF), acute on chronic Acute renal failure type: unspecified Chronic kidney disease stage: stage 3 (moderate) Qualified Codes: N17.9 - Acute kidney failure, unspecified; N18.3 - Chronic kidney disease, stage 3 (moderate) Dementia Dementia type: Alzheimer's disease Alzheimer's disease onset: unspecified onset Dementia behavioral disturbance: without behavioral disturbance Qualified Codes: G30.9 - Alzheimer's disease, unspecified; F02.80 - Dementia in other diseases classified elsewhere without behavioral disturbance MEG CHEN MD Dec 14, 2017 10:38
== END 2017-12-09 03:23 | disposition expired | DRG 871 ==
LOC: EDBD 19:36 → ER 19:36 → ICU 22:55
PROVIDERS: ADMIT Internal Medicine; ATTEND Internal Medicine
DX: A41.9 Sepsis, unspecified organism (principal); R65.21 Severe sepsis with septic shock; J69.0 Pneumonitis due to inhalation of food and vomit; J84.9 Interstitial pulmonary disease, unspecified; A04.72 Enterocolitis due to Clostridium difficile, not specified as recurrent; I50.20 Unspecified systolic (congestive) heart failure; Z66 Do not resuscitate; I25.10 Atherosclerotic heart disease of native coronary artery without angina pectoris; R74.8 Abnormal levels of other serum enzymes; J44.9 Chronic obstructive pulmonary disease, unspecified; F32.9 Major depressive disorder, single episode, unspecified; I48.0 Paroxysmal atrial fibrillation; H55.09 Other forms of nystagmus; D63.8 Anemia in other chronic diseases classified elsewhere; Z87.01 Personal history of pneumonia (recurrent); Z85.118 Personal history of other malignant neoplasm of bronchus and lung; Z95.810 Presence of automatic (implantable) cardiac defibrillator; Z79.02 Long term (current) use of antithrombotics/antiplatelets; Z79.899 Other long term (current) drug therapy; Z79.82 Long term (current) use of aspirin; Z79.52 Long term (current) use of systemic steroids
CPT/HCPCS: 36415; 36600; 71045; 80053; 82803; 83880; 84484; 85025; 85379; 85610; 85730; 86677; 93005; 96361; 96374; 99285; J2060; J2543; J7030; J7050; J2310